=== PATIENT | male | born 1955 | race Caucasian/White ===

== ENCOUNTER 2021-06-27 00:50 | Outpatient (CLI) | payer MEDICARE, SELFPAY ==
--- NOTE | 2021-06-27 14:15 | DI.MRI_ITS ---
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 TECHNIQUE: Multiplanar multisequence MRI was performed. COMPARISON: No exams were available for comparison FINDINGS: BONES: There is no fracture or contusion pattern. JOINTS: Tricompartment degenerative changes are present with varying degrees of joint space narrowing , cartilage thinning, periarticular spurring and subchondral edema. A small to moderate joint effusi on is present. TENDONS: Extensor mechanism: Unremarkable. Medial retinaculum: Unremarkable. Lateral retinaculum: Unremarkable. Popliteus: Unremarkable. MUSCLES: Unremarkable. MENISCI: The root, posterior horn and body of the medial meniscus show abnormal signal and decreased size consistent with a tear. There is increased signal seen in the anterior horn of the lateral meni scus. This may represent degeneration or tear. SOFT TISSUES: There is a large popliteal cyst. There is edema seen in the soft tissues adjacent to t he popliteal cyst. This may represent rupture. LIGAMENTS: Anterior Cruciate: There is an ACL tear. Posterior Cruciate: Unremarkable. Medial Collateral:Intact. Lateral Collateral: Intact. OTHER: IMPRESSION: 1. Anterior cruciate ligament tear. 2. Large tear involving the posterior horn and body of the medial meniscus. 3. Abnormal signal seen in the anterior horn of the lateral meniscus which may represent degeneration or tear. 4. Tricompartment osteoarthritis. 5. Popliteal cyst with findings suggestive of a rupture. DATA REPOSITORY:
== END 2021-06-27 01:10 ==
PROVIDERS: PCP Family Medicine; Visit Provider Family Medicine
DX: M17.5 Other unilateral secondary osteoarthritis of knee (principal); S83.511A Sprain of anterior cruciate ligament of right knee, initial encounter; S83.8X1A Sprain of other specified parts of right knee, initial encounter
CPT/HCPCS: 73721

== ENCOUNTER 2021-07-22 10:56 | Outpatient (CLI) | payer MEDICARE, SELFPAY ==
--- NOTE | 2021-07-22 10:00 | DI.RAD_ITS ---
Exam(s) XR KNEE RT 3V AP,LAT,DEBORAH EXAM: XR KNEE RT 3V AP,LAT,DEBORAH CLINICAL HISTORY: pain. TECHNIQUE: 2D digital imaging was performed of the right knee. Three views obtained. AP, lateral, M erchant and PA tunnel views were obtained. COMPARISON: MR MR LOWER JOINT RT WO from 06/27/2021 FINDINGS: BONES: No acute fracture is present. No bony destructive lesion is seen. There is an enthesophyte at the superior patella. JOINTS: Tricompartment degenerative changes are present with joint space narrowing and periarticular spurring. The findings are most marked in the medial femoral tibial joint. There is a small joint e ffusion. SOFT TISSUE: Surgical clips are seen in the medial soft tissues. Well-circumscribed densities are se en adjacent to the medial femoral condyle which are old. Atherosclerosis is present. There is mild soft tissue swelling anterior to the patellar ligament. IMPRESSION: Moderate to severe degenerative changes in the right knee. DATA REPOSITORY: RADIATION DOSE DELIVERED:
== END 2021-07-22 10:57 | disposition home or self-care (01) ==
LOC: DIORS 10:56
PROVIDERS: PCP Family Medicine; Referring Provider Family Medicine; Visit Provider Student in an Organized Health Care Education/Training Program
DX: M17.11 Unilateral primary osteoarthritis, right knee (principal)
CPT/HCPCS: 20610; 73562; 99203; J1040

== ENCOUNTER → 2022-07-06 09:27 | Outpatient (BNVA) | payer MEDICARE, SELFPAY | PROVIDERS: PCP Family Medicine; Referring Provider Family Medicine; Visit Provider Physician Assistant | DX: M17.11 Unilateral primary osteoarthritis, right knee (principal) | CPT/HCPCS: 20610; J1040 ==

== ENCOUNTER → 2023-03-08 14:23 | Outpatient (BNVA) | payer MEDICARE, SELFPAY | PROVIDERS: PCP Family Medicine; Referring Provider Family Medicine | DX: M17.11 Unilateral primary osteoarthritis, right knee (principal) | CPT/HCPCS: 20610; J1040 ==

== ENCOUNTER → 2023-06-28 14:50 | Outpatient (BNVA) | payer MEDICARE, SELFPAY | PROVIDERS: PCP Family Medicine; Referring Provider Family Medicine; Visit Provider Student in an Organized Health Care Education/Training Program | DX: M17.11 Unilateral primary osteoarthritis, right knee (principal) | CPT/HCPCS: 20610; J1040 ==

== ENCOUNTER → 2023-10-01 09:13 | Outpatient (BNVA) | payer MEDICARE, SELFPAY | PROVIDERS: PCP Family Medicine; Referring Provider Family Medicine | DX: M17.11 Unilateral primary osteoarthritis, right knee (principal) | CPT/HCPCS: 20610; J1010; J1040 ==

== ENCOUNTER → 2024-01-13 09:42 | Outpatient (BNVA) | payer MEDICARE, SELFPAY | PROVIDERS: PCP Family Medicine; Referring Provider Family Medicine | DX: M17.11 Unilateral primary osteoarthritis, right knee (principal) | CPT/HCPCS: 20610; J7318 ==

== ENCOUNTER 2024-03-27 15:25 | Outpatient (CLI) | payer MEDICARE, SELFPAY ==
--- NOTE | 2024-03-27 11:15 | DI.RAD_ITS ---
Exam(s) XR KNEE RT 1V XR STANDING ALIGNMENT EXAM: XR STANDING ALIGNMENT CLINICAL HISTORY: TKR Planning. TECHNIQUE: 2D digital imaging was performed. Standing AP views were performed from the pelvis throu gh the ankles. COMPARISON: CR XR KNEE RT 3V AP,LAT,DEBORAH from 07/22/2021 CR XR KNEE RT 1V from 03/27/2024 FINDINGS: BONES: No acute fracture is present. No bony destructive lesion is seen. Leg length discrepancy: The left femoral head projects superior to the right by approximately 12 mill imeters. JOINTS: Knees: Severe degenerative changes of the right knee. Marked narrowing of the medial femoral tibial joint space, lateral subluxation and varus angulation. Prominent periarticular spurring. Fl attening of the tibial spines and femoral intercondylar notch. Moderate degenerative changes of the medial femoral tibial joint of the left knee. The ankle joints are unremarkable. The hip joints are unremarkable. SOFT TISSUE: Swelling anterior to right patella. Also suggestion of post rounded area posterior swel ling which could represent a Lovett's cyst. Vascular calcifications. Surgical clips noted in the pos terior soft tissues of the right knee. IMPRESSION: Severe degenerative changes of the right knee. Moderate degenerative changes of the left knee.. Approximate 12 millimeter overall leg length discrepancy. DATA REPOSITORY: RADIATION DOSE DELIVERED:
== END 2024-03-27 15:26 | disposition home or self-care (01) ==
LOC: DIORS 15:25
PROVIDERS: PCP Family Medicine; Referring Provider Family Medicine; Visit Provider Student in an Organized Health Care Education/Training Program
DX: M17.11 Unilateral primary osteoarthritis, right knee (principal); I25.6 Silent myocardial ischemia
CPT/HCPCS: 99215; 73560; 77073

== ENCOUNTER 2024-03-30 01:15 | Outpatient (CLI) | payer MEDICARE, SELFPAY ==
--- NOTE | 2024-03-30 08:30 | DI.US_ITS ---
APPROVED REPORT EXAM: Comprehensive 2D, Doppler, and color-flow Echocardiogram Patient Location: Out-Patient Customer Service Advisor: Racquel Brizuela RDCS (AE) Indications: ESCOBAR, ASCVID Other Information Study Quality: Adequate Conclusion Normal left ventricular wall thickness and chamber size. Ejection fraction is 60%. Wall motion is n ormal Normal right ventricular size and function Both atria are normal in size There are no structural valvular abnormalities Mild to moderate tricuspid regurgitation. Estimated right ventricular systolic pressure is 29 mmHg Ascending aorta measures 3.55 cm Wall motion Left Ventricle The left ventricle is normal size. The left ventricular systolic function is normal. The left ventric ular ejection fraction is within the normal range. There is normal left ventricular wall thickness. T here is normal LV segmental wall motion. There is no ventricular septal defect visualized. LVEF is 60 %. Right Ventricle The right ventricle is normal size. The right ventricular systolic function is normal. Atria The left atrium size is normal. The right atrium size is normal. The interatrial septum is intact wit h no evidence for an atrial septal defect. Aortic Valve The aortic valve is normal in structure. Aortic valve is trileaflet. There is no aortic valvular sten osis. No aortic regurgitation is present. Mitral Valve The mitral valve is normal in structure. No evidence of mitral valve stenosis. Trace mitral regurgit ation. Tricuspid Valve The tricuspid valve is normal in structure. There is no tricuspid valve stenosis. Mild to moderate tr icuspid regurgitation. The RVSP is 29.1 mmHg. Pulmonic Valve The pulmonary valve is normal in structure. There is no pulmonic valvular stenosis. There is no pulmo noble valvular regurgitation. Great Vessels The aortic root is normal in size. The ascending aorta is mildly dilated. Aortic arch is not well vis ualized. IVC is normal in size and collapses >50% with inspiration. Pericardium There is no pericardial effusion. 2D Dimensions IVSD d PLAX 1.00 cm M: 0.6-1.2 Ao Root d 3.48 cm M: 3.1 - 3.7 LVPW d PLAX 1.00 cm M: 0.6 - 1.2 Ao Asc Diam d 3.55 cm M: 2.6 - 3.4 LVID d PLAX 5.10 cm M: 4.2 - 5.8 LVDs 3.50 cm M: 2.5 - 4.0 LV EF Teichholz 59.2 % FS 31.58 % LV EDV (Teich) 121.8 mL LV ESV (Teich) 49.6 mL M-Mode TAPSE 1.65 cm (M/F) >1.7 Auto EF LV EDV A4C 157.8 mL LV EDV A2C 121.9 mL LV EDV BP 140.5 mL LV ESV A4C 57.7 mL LV ESV A2C 46.5 mL LV ESV BP 51.8 mL LVEF(%) A4C 63.4 % LVEF(%) A2C 61.8 % LVEF(%) BP 63.2 % LV SV A4C 100.1 ml LV SV A2C 75.3 ml LV SV BP 88.7 ml LV CO A4C 4.6 L/min LV CO A2C 3.6 L/min LV CO BP 4.1 L/min HR A4C 45.98 BPM HR A2C 48.31 BPM LV EDV Index (BP) LA Volume LA Length A4C 6.6 cm LA Length A2C 6.3 cm LA Area A4C s 24.64 cm2 LA Area A2C s 17.91 cm2 LA Vol A4C A-L 78.45 mL LA Vol A2C A-L 42.96 mL LA Vol Biplane A-L 59.1 mL LA Vol/BSA A4C A-L LA Vol/BSA A2C A-L LA Vol/BSA BP A-L 26.9 mL/m2 LA Vol A4C MOD 72.0 mL LA Vol A2C MOD 40.5 mL LA Vol BP MOD 54.5 mL RA Volume RA Area A4C 18.4 cm2 RA ESV A4C (A-L) 59.7mL RA Vol/BSA A4C A-L RA Length A4C 4.8 cm RA ESV A4C (MOD) 57.4mL LV Diastology MV E' medial 0.071 (>0.07 m/s) MV E Vmax 0.67 (0.4-1.3 m/s) MV E/E' MED 9.34 (<14) MV A Vmax 0.75 (0.4-1.3 m/s) MV E' lateral 0.108 (>0.1 m/s) E/A Ratio 0.9 MV E/E' LAT 6.18 (<14) MV E' Average 0.090 m/s MV E/E'(average) 7.44 Aortic Valve AoV Vmax 1.39 m/s LVOT Vmax 1.05 m/s AoV Peak Grad 7.7 mmHg LVOT Peak Grad 4.4 mmHg AoV Area (Vmax) 2.56 cm2 LVOT VTI 0.235 m AoV VTI 0.314 m LVOT Mean Grad 2.2 mmHg AoV Mean David. 0.93 m/s LVOT SV 79.62 mL AoV Mean Grad 4.0 mmHg LVOT Diam s 2.05 cm AoV Area (VTI) 2.54 cm2 AV Regurg Peak Gr. 7.75 mmHg Velocity Ratio 0.76 Mitral Valve MV DT 217 (160-240 msec) MV Vmax TIPS 0.70 m/s MV Mean Grad 0.7 (<2mmHg) MV VTI 0.344 m Pulmonary Valve PV Vmax 1.09 (0.5-1.5 m/s) RVOT Vmax 0.84 m/s PV Peak Grad 4.8 mmHg RVOT Peak Gr. 2.8 mmHg PV Mean David 0.71 m/s RVOT VTI 0.193 m PV Mean Grad 2.4 mmHg RVOT Mean Gr. 1.4 mmHg Tricuspid Valve RA Pressure 3.00 mmHg TR Vmax 2.55 m/s TV S' 0.13 m/s TR Peak Grad 26.0 mmHg RVSP (TR) 29.1 mmHg
== END 2024-03-30 01:35 ==
LOC: DI 01:16
PROVIDERS: PCP Family Medicine; Visit Provider Internal Medicine Cardiovascular Disease
DX: R06.09 Other forms of dyspnea (principal); I25.10 Atherosclerotic heart disease of native coronary artery without angina pectoris
CPT/HCPCS: 93306